=== PATIENT | female | born 1985 | race Caucasian/White ===

== ENCOUNTER 2023-09-13 09:10 | Inpatient (IN) | payer BC, OTHER ==
[2023-09-13] MEDS: DEXTROSE 5%-LACTATED RINGERS 1,000 ML IV SCH (10:25)
[2023-09-13 10:37] LABS: BASO % 0.3 % (0-2.0); EOS % 0.1 % (0-4.5); HEMATOCRIT 28.9 % (32.4-45.2); HEMOGLOBIN 9.1 GM/dL (10.7-15.3); LYMPH % 13.3 % (8-40); MCH 23.9 pg (25.7-33.7); MCHC 31.6 g/dl (32.0-36.0); MEAN CELL VOLUME 75.5 fl (80-96); MEAN PLT VOLUME 8.3 fl (7.5-11.1); MONO % 3.3 % (3.8-10.2); PLATELET COUNT 288 10^3/uL (134-434); RBC 3.82 M/mm3 (3.60-5.2); RDW 16.5 % (11.6-15.6); WHITE BLOOD COUNT 12.3 K/mm3 (4.0-10.0)
[2023-09-13 10:38] LABS: INR 0.93 (0.83-1.09); PROTHROMBIN TIME (PATIENT) 10.5 SEC (9.7-13.0)
[2023-09-13 10:41] LABS: ACTIVATED PTT 23.3 SECONDS (25.2-36.5)
[2023-09-13 10:54] LABS: POTASSIUM 4.2 mmol/L (3.5-5.1)
[2023-09-13 10:57] LABS: CALCIUM 8.9 mg/dL (8.5-10.1)
[2023-09-13 10:58] LABS: BLOOD UREA NITROGEN 8.6 mg/dL (7-18)
[2023-09-13 11:01] LABS: CREATININE 0.5 mg/dL (0.55-1.3)
[2023-09-13] MEDS: ELECTROLYTE-148 SOLN 1,000 ML IV SCH ×2 (17:30→19:00)
[2023-09-13] MEDS: CITRIC ACID/SODIUM CITRATE 30 ML UNIT-DOSE CUP PO ONE (18:35)
[2023-09-13 20:22] LABS: HIV INTERPRETATION NEGATIVE (NEGATIVE)
[2023-09-13] MEDS ORDERED: morphine SULFATE/PF 1 MG/2 ML (2cc Syringe - QUVA) ONE (21:08)
[2023-09-13] MEDS ORDERED: FENTANYL CITRATE/PF 50 MCG/ML VIAL ONE (21:08)
[2023-09-13] MEDS ORDERED: ONDANSETRON 4 MG/2 ML VIAL ONE (21:22)
[2023-09-13] MEDS ORDERED: DEXAMETHASONE SOD PHOSPHATE 4 MG/1 ML VIAL ONE (21:22)
[2023-09-13] MEDS ORDERED: ceFAZolin SODIUM 1 GM VIAL ONE (21:22)
[2023-09-13] MEDS ORDERED: OXYTOCIN 10 UNITS/ML VIAL ONE (21:26)
[2023-09-13] MEDS ORDERED: ACETAMINOPHEN 325 MG TABLET (FP) PO PRN (22:29)
[2023-09-13] MEDS ORDERED: METHYLERGONOVINE MALEATE 0.2 MG/1 ML AMP IM PRN (22:29)
[2023-09-13] MEDS ORDERED: IBUPROFEN 600 MG TABLET (FP) PO PRN (22:29)
[2023-09-13] MEDS ORDERED: ONDANSETRON 4 MG/2 ML VIAL IVPUSH PRN (22:29)
[2023-09-13] MEDS ORDERED: OXYTOCIN 20 UNITS in 0.9% NS 20 UNIT/1,000 ML INFUS.BAG IV ONE (23:31)
[2023-09-13] MEDS: OXYTOCIN 20 UNITS in 0.9% NS 20 UNIT/1,000 ML INFUS.BAG IV SCH (23:35)
[2023-09-14] MEDS: IBUPROFEN 800 MG/8 ML IJ IVPB PRN (05:40)
[2023-09-14 08:24] LABS: BASO % 0.2 % (0-2.0); HEMATOCRIT 26.9 % (32.4-45.2); HEMOGLOBIN 8.6 GM/dL (10.7-15.3); LYMPH % 11.4 % (8-40); MCH 24.4 pg (25.7-33.7); MCHC 32.1 g/dl (32.0-36.0); MEAN PLT VOLUME 8.5 fl (7.5-11.1); MONO % 5.9 % (3.8-10.2); NEUT % 82.5 % (42.8-82.8); PLATELET COUNT 243 10^3/uL (134-434); RBC 3.54 M/mm3 (3.60-5.2); RDW 16.7 % (11.6-15.6)
[2023-09-14] MEDS ORDERED: oxyCODONE HCL 5 MG TABLET PO PRN ×2 (10:29)
[2023-09-14] MEDS: PRENATAL VITAMINS W/ FOLIC ACID TABLET (FP) PO SCH (10:50)
[2023-09-14] MEDS: FERROUS SO4 325 MG TABLET (FP) PO SCH (11:02)
[2023-09-14 14:21] LABS: POC NITRAZINE NEG
[2023-09-14] MEDS: ACETAMINOPHEN 1000 MG/100 ML BAG IVPB PRN (16:32)
[2023-09-14] MEDS: IBUPROFEN 600 MG TABLET (FP) PO PRN (20:30)
[2023-09-14] MEDS: SIMETHICONE 80 MG TAB.CHEW (FP) PO PRN (20:30)
[2023-09-14] MEDS: SENNOSIDES/DOCUSATE COMBO (SENNA PLUS) TABLET (UD) PO PRN (21:51)
[2023-09-14] MEDS: ACETAMINOPHEN 325 MG TABLET (FP) PO PRN (21:52)
[2023-09-15 12:30] VITALS: RESP 18
[2023-09-15] MEDS: BISACODYL 10 MG SUPP.RECT RC PRN (16:42)
[2023-09-15] MEDS: ELECTROLYTE-148 SOLN 500 ML IV ONE (23:28)
[2023-09-16 10:13] VITALS: BP 95/55; PULSE 88; TEMP 98.5
== END 2023-09-16 13:25 | disposition home or self-care (01) | DRG 788 ==
LOC: JDEL 09:10 → JLDR 15:00 → J3W 09-14 00:49
PROVIDERS: ADMIT Obstetrics & Gynecology; ATTEND Obstetrics & Gynecology
PROC: 10D00Z1 Extraction of Products of Conception, Low, Open Approach (ICD-10-PCS; principal; 2023-09-13)
DX: O34.211 Maternal care for low transverse scar from previous cesarean delivery (principal); N85.8 Other specified noninflammatory disorders of uterus; Z3A.39 39 weeks gestation of pregnancy; Z37.0 Single live birth
CPT/HCPCS: 36415; 80048; 83986-QW; 85025; 85610; 85730; 86780; 86850; 86900; 86901; 87389; 88307-TC; J0131